=== PATIENT | female | born 1985 | race Caucasian/White ===

== ENCOUNTER 2016-10-29 13:17 | Emergency (ER) | payer SELFPAY ==
[2016-10-29] MEDS ORDERED: IBUPROFEN 800 MG TABLET PO ONE (15:19)
[2016-10-29] MEDS ORDERED: SULFAMETHOXAZOLE/TRIMETHOPRIM 800-160 MG TABLET PO ONE (15:19)
--- NOTE | 2016-10-29 15:27 | ER Document Report ---
HPI - HPI Patient complains to provider of: skin erythema Pain Level: 4 Context: patient is a 31-year-old female presents to the emergency Department complaining of a bump on her skin and there for about 3 days, tenderness with erythema. History of MRSA. Denies any past medical history. Doesn't have a primary care provider. No allergies - REPRODUCTIVE Reproductive: DENIES: : - DERM Skin Color: Normal Past Medical History - Social History Smoking Status: Unknown if Ever Smoked Family History: Reviewed & Not Pertinent Patient has suicidal ideation: No Patient has homicidal ideation: No Pulmonary Medical History: Denies: Hx Tuberculosis Renal/ Medical History: Denies: Hx Peritoneal Dialysis GI Medical History: Reports: Hx Gastroesophageal Reflux Disease Past Surgical History: Reports: Hx Cholecystectomy, Hx Oral Surgery - dental, Hx Orthopedic Surgery - left elbow. Denies: Hx Pacemaker - Immunizations Immunizations up to date: Yes Hx Diphtheria, Pertussis, Tetanus Vaccination: Yes Vertical Provider Document - CONSTITUTIONAL Agree With Documented VS: Yes Exam Limitations: No Limitations General Appearance: WD/WN, No Apparent Distress Notes: PHYSICAL EXAM GENERAL: Alert, interacts well. HEAD: Normocephalic, atraumatic. EYES: Pupils equal, round, and reactive to light. Extraocular movements intact. ENT: Oral mucosa moist, tongue midline. NECK: Full range of motion. Supple. Trachea midline. LUNGS: Clear to auscultation bilaterally, no wheezes, rales, or rhonchi. No respiratory distress. HEART: Regular rate and rhythm. No murmurs, gallops, or rubs. ABDOMEN: Soft, nondistended, nontender. No guarding, rebound, or rigidity.. Bowel sounds present in all 4 quadrants. EXTREMITIES: Moves all 4 extremities spontaneously. No edema, radial and dorsalis pedis pulses 2/4 bilaterally. No cyanosis. NEUROLOGICAL: Alert and oriented x4. Normal speech. PSYCH: Normal affect, normal mood. SKIN: Warm, dry, normal turgor. 2 cm in diameter lesion noted under the right nostril with whiteside drainage. Moderately tender - INFECTION CONTROL TRAVEL OUTSIDE OF THE [place] IN LAST 30 DAYS: No - RESPIRATORY O2 Sat by Pulse Oximetry: 100 Course - Re-evaluation Re-evalutation: 10/29/16 21:35 Culture sent. Initiated on antibiotic coverage for MRSA. Told to follow up with primary care physician in 3 days for reassessment - Vital Signs Vital signs: Temp Pulse Resp BP Pulse Ox 98.8 F 107 H 18 138/95 H 100 10/29/16 13:22 10/29/16 13:22 10/29/16 13:22 10/29/16 13:22 10/29/16 13:22 Discharge - Discharge Clinical Impression: Cellulitis Condition: Good Disposition: HOME, SELF-CARE Instructions: MRSA Cellulitis ([facility]), Use of [id number] Ibuprofen ([facility]), Acetaminophen Additional Instructions: Return if site is not improving with warm compresses and antibiotic, give it 2 days to show signs of improvement. Increase in size, pain Prescriptions: Sulfamethoxazole/Trimethoprim [Bactrim Ds Tablet] 1 each PO BID 7 Days
[2016-10-29 15:42] VITALS: BP 128/85
== END 2016-10-29 15:41 | disposition home or self-care (01) ==
LOC: ER 13:17
DX: L03.90 Cellulitis, unspecified (principal); L98.9 Disorder of the skin and subcutaneous tissue, unspecified; Z86.14 Personal history of Methicillin resistant Staphylococcus aureus infection
CPT/HCPCS: 87070; 87075; 87077; 87186; 87205; 99283